=== PATIENT | female | born 1945 | race Caucasian/White ===

== ENCOUNTER 2016-12-03 23:36 | Emergency (ER) | payer OTHER ==
[~2016-12-03] VITALS: Ht 165.1 cm; Wt 62.4 kg
[~2016-12-03 23:36] MED LIST: ARIC5TAB PO; CIPR500T2 PO; NAME5TAB2 PO
[2016-12-03 23:42] VITALS: BP 175/109; PULSE 78; RESP 16; TEMP 98.3; O2SAT 99
[2016-12-03 23:50] VITALS: BP 163/94; PULSE 79; RESP 16; O2SAT 99
[2016-12-04] MEDS ORDERED: SIMV40TA PO (00:05)
[2016-12-04] MEDS ORDERED: LISI10TA3 PO (00:22)
--- NOTE | 2016-12-04 00:22 | PD ---
HPI Chief Complaint: Hypertension Time Seen by Provider: 00:14 Travel History International Travel<30 days: No Contact w/Intl Traveler<30days: No Traveled to known affect area: No History of Present Illness HPI The patient is a 71-year-old female that was brought in by her because she had left shoulder pain and elevated blood pressure. The was concerned that the left shoulder pain might be from the heart. The patient states her left shoulder pain started today and is reproduced easily by movements of the left arm and there is tenderness at the left shoulder at one spot. The patient does not have a history of hypertension, she is on atorvastatin for elevated cholesterol. She denies any chest tightness or chest pain of any kind. PFSH Past Medical History Arthritis: Yes (HANDS) Heart Rhythm Problems: Yes (THIS VISIT SB) Cancer: No Cardiovascular Problems: Yes (BRADYCARDIA THIS ADMIT) High Cholesterol: Yes (STATES BORDERLINE NO MEDS) Chest Pain: Yes (06/27/14) Congestive Heart Failure: No Dementia: Yes Diminished Hearing: No Endocrine: No Gastrointestinal Disorders: No Genitourinary: No Headaches: Yes Immune Disorder: No Implanted Vascular Access Dvce: No Musculoskeletal: Yes Neurologic: Yes (DEMENTIA) Psychiatric: No Reproductive: No Respiratory: No Migraines: No Seizures: No ?: Not Menopausal: Yes Past Surgical History Abdominal Surgery: No Genitourinary Surgery: No Gynecologic Surgery: Yes (HYSTERECTOMY) Hysterectomy: Yes Other Surgery: Yes Social History Alcohol Use: No Tobacco Use: No Substance Use: No Allergies-Medications (Allergen,Severity, Reaction): Coded Allergies: Penicillin (Verified Allergy, Mild, [facility], 12/04/16) Reported Meds & Prescriptions Reported Meds & Active Scripts Active Lisinopril 10 Mg Tab 10 Mg PO DAILY Reported Simvastatin 40 Mg Tab 40 Mg PO HS Review of Systems Except as stated in HPI: all other systems reviewed are Neg Physical Exam Narrative GENERAL: Well-nourished, well-developed patient in no apparent distress except for her left shoulder pain. Her vital signs show blood pressure initially 175/ 109 but repeat is 163/94. The rest the vital signs are normal. SKIN: Focused skin assessment warm/dry. HEAD: Normocephalic. EYES: No scleral icterus. No injection or drainage. NECK: Supple, trachea midline. No JVD or lymphadenopathy. CARDIOVASCULAR: Regular rate and rhythm without murmurs, gallops, or rubs. RESPIRATORY: Breath sounds equal bilaterally. No accessory muscle use. Lungs clear to auscultation bilaterally. GASTROINTESTINAL: Abdomen soft, non-tender, nondistended. MUSCULOSKELETAL: No cyanosis, or edema. I can completely reproduce the patient' s shoulder pain by pressing on the left shoulder. Movements also reproduce the patient's pain completely. BACK: Nontender without obvious deformity. No CVA tenderness. Data Data Last Documented VS Vital Signs Date Time Temp Pulse Resp B/P Pulse Ox O2 Delivery O2 Flow Rate FiO2 12/04/16 01:52 77 16 162/83 100 12/04/16 01:23 Room Air 12/03/16 23:42 98.3 Orders Lisinopril (Prinivil) (12/04/16 00:30) Complete Blood Count With Diff (12/04/16 00:24) Comprehensive Metabolic Panel (12/04/16 00:24) Labs Laboratory Tests Test 12/04/16 00:40 White Blood Count 8.7 TH/MM3 Red Blood Count 4.08 MIL/MM3 Hemoglobin 12.3 GM/DL Hematocrit 37.0 % Mean Corpuscular Volume 90.7 FL Mean Corpuscular Hemoglobin 30.0 PG Mean Corpuscular Hemoglobin 33.1 % Concent Red Cell Distribution Width 15.6 % Platelet Count 264 TH/MM3 Mean Platelet Volume 7.7 FL Neutrophils (%) (Auto) 72.1 % Lymphocytes (%) (Auto) 19.5 % Monocytes (%) (Auto) 6.5 % Eosinophils (%) (Auto) 1.4 % Basophils (%) (Auto) 0.5 % Neutrophils # (Auto) 6.3 TH/MM3 Lymphocytes # (Auto) 1.7 TH/MM3 Monocytes # (Auto) 0.6 TH/MM3 Eosinophils # (Auto) 0.1 TH/MM3 Basophils # (Auto) 0.0 TH/MM3 CBC Comment DIFF FINAL Differential Comment Sodium Level 145 MEQ/L Potassium Level 3.5 MEQ/L Chloride Level 108 MEQ/L Carbon Dioxide Level 30.1 MEQ/L Anion Gap 7 MEQ/L Blood Urea Nitrogen 13 MG/DL Creatinine 0.97 MG/DL Estimat Glomerular Filtration 56 ML/MIN Rate Random Glucose 113 MG/DL Calcium Level 8.9 MG/DL Total Bilirubin 0.5 MG/DL Aspartate Amino Transf 18 U/L (AST/SGOT) Alanine Aminotransferase 23 U/L (ALT/SGPT) Alkaline Phosphatase 90 U/L Total Protein 6.9 GM/DL Albumin 3.5 GM/DL MDM Medical Decision Making Medical Screen Exam Complete: Yes Emergency Medical Condition: Yes Medical Record Reviewed: Yes Differential Diagnosis hypertension, elevated blood pressure, hypertension poor conttrol, acs- unlikely , musculoskeletal pain Left shoulder Narrative Course Review of her previous lab work here reveals the creatinine has been steadily increasing and she has had low potassiums in the past. For these reasons the blood work will be repeated tonight. Diagnosis Primary Impression: Elevated blood pressure reading Additional Impression: Shoulder pain, left Med/Other Pt SpecificInfo: Prescription(s) given Scripts Lisinopril 10 Mg Tab10 Mg PO DAILY #30 TAB Ref 0 Prov:Shon Goss MD 12/04/16 Disposition: 01 DISCHARGE HOME Condition: Stable Shon Goss MD Dec 04, 2016 00:22
[2016-12-04] MEDS ORDERED: LISINOPRIL 20 MG TAB PO ONE (00:30)
[2016-12-04 00:50] VITALS: BP 168/99; PULSE 74; RESP 16; O2SAT 99
[2016-12-04 01:00] LABS: CHLORIDE 108 MEQ/L (98-107); POTASSIUM 3.5 MEQ/L (3.5-5.1); SODIUM (NA) 145 MEQ/L (136-145)
[2016-12-04 01:01] LABS: AUTOMATED NEUTROPHIL # 6.3 TH/MM3 (1.8-7.7); BASOPHIL % 0.5 % (0.0-2.0); EOSINOPHIL # 0.1 TH/MM3 (0-0.4); EOSINOPHIL % 1.4 % (0.0-4.0); HEMO FLAGS DIFF FINAL; LYMPH % 19.5 % (9.0-44.0); LYMPHOCYTE # 1.7 TH/MM3 (1.0-4.8); MEAN CELL VOLUME 90.7 FL (80.0-100.0); MEAN CORPUSCULAR HGB CONC 33.1 % (32.0-36.0); MONO % 6.5 % (0.0-8.0); NEUT % 72.1 % (16.0-70.0); PLATELET COUNT 264 TH/MM3 (150-450); RED BLOOD COUNT 4.08 MIL/MM3 (4.00-5.30); RED CELL DISTRIBUTION WIDTH 15.6 % (11.6-17.2); WHITE BLOOD COUNT 8.7 TH/MM3 (4.0-11.0)
[2016-12-04 01:04] LABS: ANION GAP 7 MEQ/L (5-15); BICARBONATE 30.1 MEQ/L (21.0-32.0); BLOOD UREA NITROGEN 13 MG/DL (7-18)
[2016-12-04 01:07] LABS: ALT (GPT) 23 U/L (10-53); AST (GOT) 18 U/L (15-37); GLOMERULAR FILTRATION RATE 56 ML/MIN (>89)
[2016-12-04 01:08] LABS: TOTAL BILIRUBIN ADULT 0.5 MG/DL (0.2-1.0)
[2016-12-04 01:10] LABS: ALKALINE PHOSPHATASE 90 U/L (45-117)
[2016-12-04 01:23] VITALS: BP 164/90; PULSE 78; RESP 16
[2016-12-04 01:52] VITALS: BP 162/83
== END 2016-12-04 01:54 | disposition home or self-care (01) ==
LOC: PHED 23:36
DX: R03.0 Elevated blood-pressure reading, without diagnosis of hypertension (principal); M25.512 Pain in left shoulder; E78.00 Pure hypercholesterolemia, unspecified; F03.90 Unspecified dementia, unspecified severity, without behavioral disturbance, psychotic disturbance, mood disturbance, and anxiety; Z87.39 Personal history of other diseases of the musculoskeletal system and connective tissue
CPT/HCPCS: 80053; 85025; 99283